=== PATIENT | female | born 1935 | race Caucasian/White ===

== ENCOUNTER 2018-01-18 06:59 | Day surgery (SDC) | payer MEDICARE, BC ==
[2018-01-18] MEDS ORDERED: Lactated Ringers 1,000 ML IV SCH (07:30)
[2018-01-18] MEDS ORDERED: Sodium Phosphate,Monobasic/Sodium Phosphate,Dibasic Enema 133 ML Bottle RECTAL ONE (07:38)
[2018-01-18] MEDS ORDERED: Propofol 200 MG/20 ML SDV ONE (07:59)
[2018-01-18] MEDS ORDERED: fentaNYL 100 MCG/2 ML SDV ONE (07:59)
[2018-01-18] MEDS ORDERED: Midazolam 1 MG/ML 2 ML SDV ONE (07:59)
[2018-01-18] MEDS ORDERED: Glycopyrrolate 0.2 MG/ML 5 ML MDV ONE (08:45)
[2018-01-18] MEDS ORDERED: Atropine 0.4 MG/ML SDV ONE (08:45)
[2018-01-18 10:41] VITALS: BP 148/77
--- NOTE | 2018-01-18 14:44 | OR ---
DATE OF PROCEDURE: 01/18/2018 PREOPERATIVE DIAGNOSES: 1. Nausea. 2. Gastroesophageal reflux disease. 3. Colon cancer screening. POSTOPERATIVE DIAGNOSES: 1. Nausea. 2. Gastroesophageal reflux disease. 3. Colon cancer screening. 4. Mild gastritis. 5. Gastroesophageal stricture. 6. Colonic diverticulosis. 7. Hiatal hernia. 8. Small right colon polyp. PROCEDURES PERFORMED: 1. Esophagogastroduodenoscopy with gastric biopsies for CLOtest, sent for pathology to look for Helicobacter pylori. 2. Biopsy of gastroesophageal junction. 3. Colonoscopy to the cecum with biopsy resection of small right colon polyp. ANESTHESIA: IV anesthesia with monitored anesthesia care. INDICATION: This 82-year-old white female is referred for upper and lower endoscopies. Indication for upper endoscopy is nausea and gastroesophageal reflux disease. She is taking an H2 brian. Indication for colonoscopy is colon cancer screening. She says her last colonoscopic exam was done in 2006. I counseled her for upper and lower endoscopies with possible biopsy and/or polypectomy including risks and alternatives, and she gave her informed consent to proceed. DESCRIPTION OF PROCEDURE: The patient was placed in the left lateral decubitus position. IV anesthesia was administered by the Anesthesia Service. Time-out was held. The flexible video Olympus upper endoscope was passed through her mouth, down her esophagus, and into her stomach. The scope was easily passed through the pylorus, into the duodenum, and reaching its third portion. The scope was then slowly withdrawn, examining the mucosa throughout. The duodenal mucosa appeared unremarkable. The scope was brought back up through the pylorus into the antrum. There was red streaking emanating from the pylorus consistent with mild gastritis. The scope was retroflexed. We could see a hiatal hernia. The scope was straightened. We obtained antral biopsies for CLOtest, sent for pathology to look for Helicobacter pylori. We examined the gastric body and noted multiple small polyps. Several of these were sampled, having the appearance of fundic polyps. The scope was then brought up to the GE junction, which was narrowed, consistent with a mild stricture. We obtained multiple, totalling at least 6, biopsies of the gastroesophageal junction. The scope was then brought up through the remainder of the esophagus, which otherwise appeared unremarkable and it was removed. Next, a rectal exam was performed, which was unremarkable. The flexible video Olympus colonoscope was introduced through her anus, up her rectum, and out her colon, all the way to the cecum. En route, we saw multiple left-sided diverticula. There was no bleeding or inflammation associated with any of them. Also en route to the cecum, in the right colon, we saw a small polyp, which was removed with the biopsy forceps. Once the cecum was reached, the scope was slowly withdrawn, examining the mucosa throughout. No additional mucosal abnormalities were noted. The scope was retroflexed in the rectum with the distal rectum appearing unremarkable. The scope was straightened and removed. She tolerated the procedure well. Yasir Gaston MD /[id number]
== END 2018-01-18 11:01 | disposition home or self-care (01) ==
LOC: JP.SDS 06:59
PROVIDERS: ATTEND Surgery
DX: K21.9 Gastro-esophageal reflux disease without esophagitis (principal); Z12.11 Encounter for screening for malignant neoplasm of colon; D12.2 Benign neoplasm of ascending colon; K57.30 Diverticulosis of large intestine without perforation or abscess without bleeding; K22.2 Esophageal obstruction; K44.9 Diaphragmatic hernia without obstruction or gangrene; K31.7 Polyp of stomach and duodenum; K29.50 Unspecified chronic gastritis without bleeding; Z88.8 Allergy status to other drugs, medicaments and biological substances
CPT/HCPCS: 87081; 88305; A9270-GY; J0461; J2250; J2704; J3010; J7120

== ENCOUNTER 2019-04-19 18:27 | Emergency (ER) | payer MEDICARE, BC ==
--- NOTE | 2019-04-19 18:48 | EDM.PDOC ---
ED HPI GENERAL MEDICAL PROBLEM - General Chief Complaint: Head Injury Stated Complaint: something stuck in throat Time Seen by Provider: 04/19/19 19:22 Source of Information: Reports: Patient History Limitations: Reports: No Limitations - History of Present Illness INITIAL COMMENTS - FREE TEXT/NARRATIVE: 83 years old female patient presented with a chief complaint of head injury. Patient was sitting down eating chicken and rice, felt some food stuck in her throat, she got up and went to the sink to get some water then she felt like she was choking and passed out. She fell down hit her head. She fainted for a few seconds. Complaining of headache. Denies any neck pain. Denies any back pain. Denies any chest pain shortness breath or palpitation. Denies any visual changes. Denies any focal weakness or numbness anywhere. Denies any abdominal pain diarrhea or constipation. Denies any urinary symptom. Denies any nausea or vomiting. She does not feel anything stuck in her throat anymore and she was given some Coke and she was able to drink it and keep it down with no problem. Occipital Headache Pain Score (Numeric/FACES): 6 - Related Data Allergies Allergy/AdvReac Type Severity Reaction Status Date / Time Bisphosphonates Allergy Muscle Verified 01/14/18 10:56 Aches Latex, Natural Rubber Allergy Rash Verified 07/24/16 15:05 Home Meds: Home Meds Cholecalciferol (Vitamin D3) [D-2000] 2,000 unit PO DAILY 07/23/16 [History] Esomeprazole [NexIUM] 20 mg PO DAILY 07/23/16 [History] Multivitamin [Multiple Vitamins] 1 each PO DAILY 07/23/16 [History] Past Medical History HEENT History: Reports: Impaired Vision Gastrointestinal History: Reports: [employer] History: Reports: , Spontaneous Musculoskeletal History: Reports: Arthritis, Other (See Below) Other Musculoskeletal History: R knee pain Oncologic (Cancer) History: Reports: Breast - Infectious Disease History Infectious Disease History: Reports: Chicken Pox, Measles, Mumps - Past Surgical History GI Surgical History: Reports: Colonoscopy, Esophageal Dilatation Musculoskeletal Surgical History: Reports: Other (See Below) Other Musculoskeletal Surgeries/Procedures:: cortisone shots right knee Oncologic Surgical History: Reports: Mastectomy Dermatological Surgical History: Reports: None Social & Family History - Family History Family Medical History: Noncontributory - Tobacco Use Smoking Status *Q: Never Smoker - Caffeine Use Caffeine Use: Reports: Coffee - Recreational Drug Use Recreational Drug Use: No ED ROS GENERAL - Review of Systems Review Of Systems: ROS reveals no pertinent complaints other than HPI. ED EXAM, HEAD INJURY - Physical Exam Exam: See Below Exam Limited By: No Limitations General Appearance: Alert, WD/WN, No Apparent Distress Head: Atraumatic, Normocephalic Eyes: Bilateral Eye: EOMI Ears: Normal External Exam, Normal Canal, Hearing Grossly Normal, Normal TMs Nose: Normal Inspection, Normal Mucousa, No Blood Throat/Mouth: Normal Inspection, Normal Lips, Normal Teeth, Normal Gums, Normal Oropharynx, Normal Voice, No Airway Compromise Neck: Non-Tender, Full Range of Motion, Normal Alignment, Normal Inspection Respiratory: No Respiratory Distress, Lungs Clear, Normal Breath Sounds, No Accessory Muscle Use, Chest Non-Tender Cardiovascular: Normal Peripheral Pulses, Regular Rate, Rhythm, No Edema, No Gallop, No JVD, No Murmur, No Rub GI/Abdominal Exam: Normal Bowel Sounds, Soft, Non-Tender, No Organomegaly, No Distention, No Abnormal Bruit, No Mass Rectal (Female) Exam: Normal Exam, Normal Rectal Tone Back Exam: Full Range of Motion, Normal Inspection, NT Extremities: Normal Inspection, Normal Range of Motion, Non-Tender, No Pedal Edema, Normal Capillary Refill Neurologic: geological scout II-XII nml As Tested, No Motor/Sensory Deficits, Alert, Normal Mood/Affect, Oriented x 3 Skin: Normal Color, Warm/Dry Course - Vital Signs Text/Narrative:: Patient was seen and examined shortly after arrival. Stable. She does not feel anything stuck in her throat anymore. She was able to drink Coke. Lab and imaging reviewed with the patient. No significant acute abnormalities.this is most likely vasovagal syncope secondary to choking. She is feeling back to normal now completely asymptomatic. Stable for discharge. Last Recorded V/S: Last Vital Signs Temp 35.8 C 04/19/19 18:41 Pulse 72 04/19/19 19:48 Resp 16 04/19/19 18:41 BP 133/64 04/19/19 19:48 Pulse Ox 94 L 04/19/19 18:41 - Orders/Labs/Meds Orders: Active Orders 24 hr Category Date Time Status Cardiac Monitoring [RC] .As Directed Care 04/19/19 18:49 Active EKG Documentation Completion [RC] ASDIRECTED Care 04/19/19 18:51 Active EKG 12 Lead [EK] Stat Ther 04/19/19 18:51 Ordered Labs: Laboratory Tests 04/19/19 04/19/19 04/19/19 Range/Units 19:02 19:02 19:02 WBC 7.6 (4.5-11.0) K/uL RBC 4.56 (3.30-5.50) M/uL Hgb 13.9 (12.0-15.0) g/dL Hct 42.3 (36.0-48.0) % MCV 93 (80-98) fL MCH 31 (27-31) pg MCHC 33 (32-36) % Plt Count 314 (150-400) K/uL Neut % (Auto) 52 (36-66) % Lymph % (Auto) 37 (24-44) % [place] % (Auto) 9 H (2-6) % Eos % (Auto) 3 (2-4) % Baso % (Auto) 0 (0-1) % PT 10.2 (9.5-12.0) sec INR 0.94 (0.80-1.20) Sodium 143 (140-148) mmol/L Potassium 3.6 (3.6-5.2) mmol/L Chloride 105 (100-108) mmol/L Carbon Dioxide 29 (21-32) mmol/L Anion Gap 9.0 (5.0-14.0) mmol/L BUN 13 (7-18) mg/dL Creatinine 0.9 (0.6-1.0) mg/dL Est Cr Clr Drug Dosing 40.55 mL/min Estimated GFR (MDRD) > 60 (>60) Glucose 127 H (74-106) mg/dL Lactic Acid (0.4-2.0) mmol/L Calcium 9.4 (8.5-10.1) mg/dL Total Bilirubin 0.3 (0.2-1.0) mg/dL AST 15 (15-37) U/L ALT 20 (12-78) U/L Alkaline Phosphatase 91 (46-116) U/L Troponin I < 0.017 (0.000-0.056) ng/mL Total Protein 7.4 (6.4-8.2) g/dL Albumin 3.9 (3.4-5.0) g/dL Globulin 3.5 (2.3-3.5) g/dL Albumin/Globulin Ratio 1.1 L (1.2-2.2) 04/19/19 Range/Units 19:02 WBC (4.5-11.0) K/uL RBC (3.30-5.50) M/uL Hgb (12.0-15.0) g/dL Hct (36.0-48.0) % MCV (80-98) fL MCH (27-31) pg MCHC (32-36) % Plt Count (150-400) K/uL Neut % (Auto) (36-66) % Lymph % (Auto) (24-44) % [place] % (Auto) (2-6) % Eos % (Auto) (2-4) % Baso % (Auto) (0-1) % PT (9.5-12.0) sec INR (0.80-1.20) Sodium (140-148) mmol/L Potassium (3.6-5.2) mmol/L Chloride (100-108) mmol/L Carbon Dioxide (21-32) mmol/L Anion Gap (5.0-14.0) mmol/L BUN (7-18) mg/dL Creatinine (0.6-1.0) mg/dL Est Cr Clr Drug Dosing mL/min Estimated GFR (MDRD) (>60) Glucose (74-106) mg/dL Lactic Acid 1.7 (0.4-2.0) mmol/L Calcium (8.5-10.1) mg/dL Total Bilirubin (0.2-1.0) mg/dL AST (15-37) U/L ALT (12-78) U/L Alkaline Phosphatase (46-116) U/L Troponin I (0.000-0.056) ng/mL Total Protein (6.4-8.2) g/dL Albumin (3.4-5.0) g/dL Globulin (2.3-3.5) g/dL Albumin/Globulin Ratio (1.2-2.2) Departure - Departure Time of Disposition: 20:14 Disposition: Home, Self-Care 01 Condition: Good Clinical Impression: Choking, Vasovagal syncope, Head injury - Discharge Information *PRESCRIPTION DRUG MONITORING PROGRAM REVIEWED*: Not Applicable *COPY OF PRESCRIPTION DRUG MONITORING REPORT IN PATIENT RUTHIE: Not Applicable Instructions: Head Injury, Adult, [id number], Syncope, [id number], Hematoma , [id number] Referrals: Trisha Morton PA [Primary Care Provider] - Forms: ED Department Discharge Additional Instructions: rest and stay well-hydrated Close follow-up with PCP Come back if symptom worsen - My Orders Last 24 Hours: My Active Orders 04/19/19 18:49 Cardiac Monitoring [RC] .As Directed 04/19/19 18:51 EKG Documentation Completion [RC] ASDIRECTED EKG 12 Lead [EK] Stat - Assessment/Plan Last 24 Hours: My Active Orders 04/19/19 18:49 Cardiac Monitoring [RC] .As Directed 04/19/19 18:51 EKG Documentation Completion [RC] ASDIRECTED EKG 12 Lead [EK] Stat Plan: rest and stay well-hydrated Close follow-up with PCP Come back if symptom worsen
--- NOTE | 2019-04-19 19:50 | CRLCR ---
INDICATION: Chest pain TECHNIQUE: Frontal view of the chest. COMPARISON: None FINDINGS: There is mild enlargement of the cardiac silhouette. Note is made of a moderate size hiatal hernia. The lungs are clear. There is no sizable pleural effusion or pneumothorax. The bones are osteopenic. IMPRESSION: Cardiomegaly. Hiatal hernia. Dictated by Jannie Kwan MD @ Apr 19 2019 7:50PM Signed by Dr. Jannie Kwan @ Apr 19 2019 7:50PM
--- NOTE | 2019-04-19 19:54 | CRLCT ---
INDICATION: fall, head injury CT HEAD WITHOUT CONTRAST TECHNIQUE: Multiple axial CT images were performed through the head without intravenous contrast administration. COMPARISON: No previous studies are currently available for comparison. FINDINGS: No acute intracranial hemorrhage is identified. No extra-axial collections are evident and there is no mass effect or midline shift. There is mild diffuse age-related brain atrophy. Ventricular size and configuration are within normal limits for the patient`s age. Hall-white differentiation is within normal limits. There is patchy hypodensity in the periventricular white matter, a nonspecific finding which most likely reflects chronic small vessel ischemic change. Moderate-sized scalp hematoma is noted over the right parietal region. Osseous structures are within normal limits and no fractures are seen. Included portions of the paranasal sinuses and mastoid air cells are normally aerated aside from a small right mastoid effusion. IMPRESSION: 1. No acute intracranial abnormality identified. 2. Right parietal scalp hematoma. No fracture identified. 3. Mild age-related brain atrophy and white matter hypodensity consistent with chronic small vessel ischemic change. JOSEFINA HANNA MD [employer] [facility] Dictated by Steven Hanna MD @ 04/19/2019 7:50:06 PM Dictated by: Steven Hanna MD @ 04/19/2019 19:53:12 (Electronically Signed)
[2019-04-19 19:58] VITALS: BP 133/64; PULSE 72
== END 2019-04-19 20:20 | disposition home or self-care (01) ==
LOC: JP.ED 18:27
DX: R55 Syncope and collapse (principal); S09.90XA Unspecified injury of head, initial encounter; R09.89 Other specified symptoms and signs involving the circulatory and respiratory systems; K21.9 Gastro-esophageal reflux disease without esophagitis; Z90.12 Acquired absence of left breast and nipple; Z91.040 Latex allergy status; Z79.899 Other long term (current) drug therapy; Z88.8 Allergy status to other drugs, medicaments and biological substances; W19.XXXA Unspecified fall, initial encounter; W22.8XXA Striking against or struck by other objects, initial encounter
CPT/HCPCS: 36415; 70450; 71045; 80053; 83605; 84484; 85025; 85610; 93005; 93010; 99284; 99284-25

== ENCOUNTER 2021-02-14 08:52 | Day surgery (SDC) | payer MEDICARE, BC ==
[~2021-02-14 08:52] MED LIST: Midazolam 1 MG/ML 2 ML SDV ONE; Propofol 200 MG/20 ML SDV ONE; fentaNYL 100 MCG/2 ML SDV ONE
[2021-02-14] MEDS ORDERED: Sodium Chloride 0.9% 1,000 ML IV SCH (09:30)
[2021-02-14 12:47] VITALS: BP 148/65; PULSE 78
--- NOTE | 2021-02-14 14:17 | OR ---
DATE OF PROCEDURE: 02/14/2021 SURGEON: Ty Cavazos MD PROCEDURE: Colonoscopy. FINDINGS: 1. Rectal polyp, approximately 5 mm, completely removed using cold biopsy forceps. 2. Diverticulosis, mild to moderate with a small amount of tortuosity noted in sigmoid colon. COMPLICATIONS: None. HEEL COMPRESSOR: None. RISKS: Risks, benefits, alternatives, and limitations including, but not limited to infection, bleeding, perforation, false positives and false negatives were explained to the patient who wished to proceed. PROCEDURE IN DETAIL: The patient was placed in left lateral decubitus position. Digital rectal exam was performed without abnormality. Scope was introduced and advanced atraumatically to the ileocecal valve. A photo was taken of this. Scope was brought back to the ascending, transverse, descending colon, and retroflexed. No evidence of old or new blood. No masses. No colitis. The polyp was identified and completely removed. No abnormalities on retroflexion. Diverticulosis would be described as moderate, limited to sigmoid colon without evidence of diverticulitis or bleeding. The patient tolerated the procedure well. Ty Cavazos MD /[id number]
== END 2021-02-14 12:56 | disposition home or self-care (01) ==
LOC: JP.SDS 08:52
PROVIDERS: ATTEND Surgery
DX: Z12.11 Encounter for screening for malignant neoplasm of colon (principal); K62.1 Rectal polyp; K57.30 Diverticulosis of large intestine without perforation or abscess without bleeding; Z87.891 Personal history of nicotine dependence; Z88.8 Allergy status to other drugs, medicaments and biological substances; Z91.040 Latex allergy status
CPT/HCPCS: 45380; J2250; J2704; J3010; J7030; 88305

== ENCOUNTER → 2021-08-22 | Day surgery (SDC) | payer MEDICARE, BC ==
[~2021-08-22] MED LIST changes: -Midazolam 1 MG/ML 2 ML SDV ONE; -Propofol 200 MG/20 ML SDV ONE; +Sodium Chloride 0.9% 10 ML Syringe FLUSH PRN; -fentaNYL 100 MCG/2 ML SDV ONE
[2021-08-22 08:04] VITALS: BP 123/62; PULSE 75
--- NOTE | 2021-08-22 14:44 | OR ---
DATE OF PROCEDURE: 08/22/2021 SURGEON: Marisa Cárdenas MD POSTOPERATIVE CARE: Postoperative care will be provided mainly at the [address] [place] [address] [facility] in conjunction with [facility]. PREOPERATIVE DIAGNOSIS: Cataract, right eye. POSTOPERATIVE DIAGNOSIS: Cataract, right eye. PROCEDURE: Phacoemulsification with intraocular lens placement, right eye. ANESTHESIA: Topical and intracameral. ESTIMATED BLOOD LOSS: Minimal. COMPLICATIONS: None. PATHOLOGY SPECIMENS: None. SURGICAL FINDINGS: None. INDICATION FOR PROCEDURE: The patient is an 85-year-old female with history of a visually significant cataract in the right eye, which interfered with activities of daily living. This consisted of a nuclear sclerosis cataract. Following careful discussion of the risks, benefits and alternatives to cataract extraction with intraocular lens placement including blindness and , the patient elected to proceed, and informed, written consent was obtained prior to the procedure. DESCRIPTION OF THE PROCEDURE: The patient was previously identified, and a cely placed above the right eye. All sources, including the patient, indicated that the right eye was the correct eye. The patient was subsequently taken to the operating room where standard monitors were applied. The patient was then prepped and draped in the usual sterile fashion for ophthalmic surgery. Attention was first directed at the 12 o'clock position where a paracentesis port was fashioned. Shugar solution followed by Viscoat was instilled into the eye. Attention was then directed to the 8:30 position where a triplanar incision was made in a near-clear manner using a keratome. A continuous capsulorrhexis was then made using a combination of the cystotome and Utrata forceps. Hydrodissection was achieved using a balanced salt solution, and the lens rotated nicely. Phacoemulsification was then done using a modified [id number] technique without complication. Phaco time was 3.81 CDE. The remaining cortex was removed using the irrigation/aspiration handpiece. Provisc was then instilled into the eye. A Technis lens, model DIB00, at 20.5 diopters was then placed in the capsular bag using an [place] injector. The remaining viscoelastic was removed using the irrigation/aspiration forceps. All wounds were then checked and found to be watertight. The lid speculum and drapes were removed. Maxitrol ointment was placed in the patient's right eye, and the eye was shielded. The patient tolerated the procedure well. The patient was instructed to follow up tomorrow. All needle and sponge counts were correct at the end of the procedure. There were no surgical findings. Marisa Cárdenas MD /[id number]
== END ==
LOC: JP.SDS 07:27
PROVIDERS: ATTEND Ophthalmology
DX: H25.11 Age-related nuclear cataract, right eye (principal); K21.9 Gastro-esophageal reflux disease without esophagitis
CPT/HCPCS: V2632

== ENCOUNTER 2021-09-19 07:59 | Day surgery (SDC) | payer MEDICARE, BC ==
[2021-09-19] MEDS ORDERED: Sodium Chloride 0.9% 10 ML Syringe FLUSH PRN (08:15)
[2021-09-19 09:28] VITALS: BP 163/65; PULSE 72
== END 2021-09-19 09:40 | disposition home or self-care (01) ==
LOC: JP.SDS 07:59
PROVIDERS: ATTEND Ophthalmology
DX: H25.12 Age-related nuclear cataract, left eye (principal); K21.9 Gastro-esophageal reflux disease without esophagitis
CPT/HCPCS: 66984; V2632